=== PATIENT | male | born 1975 | race Caucasian/White ===

== ENCOUNTER → 2023-02-21 | Outpatient (CLI) | payer BC ==
--- NOTE | 2023-02-21 13:20 | US ---
EXAMINATION TYPE: US Aorta Screening DATE OF EXAM: 02/21/2023 COMPARISON: NONE CLINICAL INDICATION: Male, 47 years old with history of R09.89 OT SYMPTOMS AND SIGNS INVOLVING THE C IRC A; Screening. Family history of AAA TECHNIQUE: Multiple sonographic images of the abdominal aorta are obtained. FINDINGS: EXAM MEASUREMENTS: Abdominal Aorta: Proximal: 2.0 x 1.9cm Mid: 2.0 x 2.0cm Distal: 2.0 x 2.0cm Bifurcation: RT: 1.4 x 1.3cm LT: 1.4 x 1.4cm CORDWAINER NOTES: No evidence of AAA within visualized portions at this time No abdominal aortic aneurysm. IMPRESSION: No ultrasound evidence for abdominal aortic aneurysm.
== END | disposition home or self-care (01) ==
LOC: RADUSWWP 12:39
PROVIDERS: ATTEND Internal Medicine
DX: Z13.6 Encounter for screening for cardiovascular disorders (principal); R09.89 Other specified symptoms and signs involving the circulatory and respiratory systems
CPT/HCPCS: 76706